=== PATIENT | female | born 1945 | race Caucasian/White ===

== ENCOUNTER 2021-06-15 11:05 | Emergency (ER) | payer MEDICARE ==
[~2021-06-15] VITALS: Ht 157.5 cm; Wt 91.4 kg
[2021-06-15 11:13] VITALS: TEMP 98.3
[2021-06-15] MEDS ORDERED: COREG12.5 MG PO (12:38)
[2021-06-15 12:46] VITALS: BP 155/77; PULSE 67
== END 2021-06-15 12:46 | disposition home or self-care (01) ==
LOC: COL.ER 11:05
DX: I10 Essential (primary) hypertension (principal)

== ENCOUNTER 2021-08-14 07:20 | Outpatient (CLI) | payer MEDICARE ==
[~2021-08-14] VITALS: Ht 157.5 cm; Wt 87.9 kg
[~2021-08-14 07:20] MED LIST: COREG12.5 MG PO; ZESTRIL30 MG PO
[2021-08-14 08:17] LABS: HEMOGLOBIN 14.4 g/dl (12.5-16.0); MEAN CELL VOLUME 89 fl (80.0-100.0); MEAN CORPUSCULAR HEMOGLOBIN 30 pg (27-31); MEAN CORPUSCULAR HGB CONC 34 g/dl (33.0-37.0); MEAN PLATELET VOLUME 9.7 fl (7.4-10.4); PLATELET COUNT 288 K/mm3 (130-400); RED BLOOD COUNT 4.82 M/mm3 (4.10-5.30); REDCELL DISTRIBUTION WIDTH-CV 13.1 % (11.5-14.5)
[2021-08-14 08:18] VITALS: BP 186/80; PULSE 64; TEMP 98.2
[2021-08-14 08:29] LABS: CALCIUM 9.2 mg/dL (8.4-10.2); CREATININE, serum 0.66 mg/dL (0.57-1.11)
[2021-08-14 08:33] LABS: INR 1.1 (0.8-3.0); PROTHROMBIN TIME 12.9 SECONDS (9.7-12.8)
[2021-08-14 10:15] VITALS: BP 171/83; PULSE 60
[2021-08-14] MEDS ORDERED: COREG12.5 MG PO (10:22)
[2021-08-14] MEDS ORDERED: TYLENOL 325MG325 MG PO (10:24)
[2021-08-14 10:30] VITALS: BP 171/78; PULSE 55
[2021-08-14 10:45] VITALS: BP 175/77; PULSE 53
[2021-08-14 11:00] VITALS: BP 172/96; PULSE 60
[2021-08-14 11:15] VITALS: BP 170/78; PULSE 58
[2021-08-14] MEDS ORDERED: ASPIRIN E.C. 8181 MG PO (11:54)
--- NOTE | 2021-08-14 12:10 | NUR ---
Discharge education given to pt, pt verbalizes understanding. Pt escorted out in wheelchair to exit and helped into car. Daughter driving.
== END 2021-08-14 18:00 ==
LOC: COL.RAD 07:20
PROVIDERS: Internal Medicine Cardiovascular Disease
DX: I08.0 Rheumatic disorders of both mitral and aortic valves (principal)
CPT/HCPCS: J2704; J3010

== ENCOUNTER 2021-09-09 07:38 | Day surgery (SDC) | payer MEDICARE ==
[2021-09-09] VITALS (13 sets, daily range): BP systolic 141–191; BP diastolic 63–95; PULSE 54–64; TEMP 98.4
[~2021-09-09] VITALS: Ht 157.5 cm; Wt 87.0 kg
[~2021-09-09 07:38] MED LIST changes: +ASPIRIN E.C. 8181 MG PO; +TYLENOL 325MG325 MG PO
[2021-09-09 08:42] LABS: HEMOGLOBIN 14.1 g/dl (12.5-16.0); MEAN CELL VOLUME 90 fl (80.0-100.0); MEAN CORPUSCULAR HEMOGLOBIN 30 pg (27-31); MEAN CORPUSCULAR HGB CONC 34 g/dl (33.0-37.0); MEAN PLATELET VOLUME 9.5 fl (7.4-10.4); PLATELET COUNT 275 K/mm3 (130-400); RED BLOOD COUNT 4.68 M/mm3 (4.10-5.30)
[2021-09-09 08:55] LABS: INR 1.1 (0.8-3.0); PROTHROMBIN TIME 12.2 SECONDS (9.7-12.8)
[2021-09-09 08:58] LABS: PARTIAL THROMBOPLASTIN TIME 31.9 SECONDS (26.0-37.0)
[2021-09-09 09:06] LABS: CREATININE, serum 0.67 mg/dL (0.57-1.11); POTASSIUM 3.8 mmol/L (3.5-4.5)
[2021-09-09] MEDS ORDERED: ASPIRIN E.C. 8181 MG PO (09:46)
--- NOTE | 2021-09-09 09:55 | NUR ---
Initial visit; Patient preparing for surgical procedure. Security Door Installer offers God's blessings for a successful procedure and a rapid and thorough recovery. assured Genny that she was in excellent hands with our team.
--- NOTE | 2021-09-09 10:30 | NUR ---
See merge for all medication, assessment, intervention, and vital sign times.
--- NOTE | 2021-09-09 14:10 | NUR ---
All air released from band in 2-3 ml incriments by this nurse.No bleeding at site observed.Right radial wrist wrapped with gauze and coban.
--- NOTE | 2021-09-09 14:45 | NUR ---
Removed 2 mls of air to TR band and site started bleeding, air replaced to TR band. Site cleared.
--- NOTE | 2021-09-09 14:51 | NUR ---
Discharge education given, pt verbalizes understanding. pt escorted out via wheelchair to daughters vehicle.
== END 2021-09-09 14:52 | disposition home or self-care (01) ==
LOC: COL.CAR 07:38
PROVIDERS: Internal Medicine Cardiovascular Disease
DX: I25.10 Atherosclerotic heart disease of native coronary artery without angina pectoris (principal); I08.0 Rheumatic disorders of both mitral and aortic valves; I10 Essential (primary) hypertension; E66.9 Obesity, unspecified; Z68.35 Body mass index [BMI] 35.0-35.9, adult
CPT/HCPCS: J1644; J2250; J3010; Q9967

== ENCOUNTER → 2022-06-29 | Outpatient (CLI) | payer MEDICARE | LOC: DIA.ED 09:16 | DX: E11.59 Type 2 diabetes mellitus with other circulatory complications (principal); I10 Essential (primary) hypertension | CPT/HCPCS: G0108 ==